=== PATIENT | female | born 1995 | race Caucasian/White ===

== ENCOUNTER 2018-05-07 21:12 | Emergency (ER) | payer OTHER ==
[~2018-05-07] VITALS: Ht 152.4 cm; Wt 77.1 kg
[2018-05-07] MEDS ORDERED: CELEXA10 MG PO (21:23)
[2018-05-07] MEDS ORDERED: VITAMIN D5000 UNIT PO (21:24)
[2018-05-07] MEDS ORDERED: WELLBUTRIN SR150 MG PO (21:24)
[2018-05-07 21:44] LABS: CALCIUM 9.1 mg/dL (8.5-10.1); CREATININE 0.7 mg/dL (0.6-1.3); POTASSIUM 3.7 mmol/L (3.5-5.1)
[2018-05-07 21:46] LABS: ABSOLUTE MONOCYTES 0.5 thou/uL (0.0-1.2); ABSOLUTE NEUTROPHILS 4.7 thou/uL (1.6-8.1); BASOPHILS 0.2 %; EOSINOPHILS 0.5 %; HEMOGLOBIN 11.5 gm/dL (12.0-15.0); LYMPHOCYTES 36.4 %; MCH 31.1 pg (26.0-34.0); MCV 91.4 fL (80.0-100.0); MONOCYTES 6.3 %; MPV 6.7 fl. (7.2-11.1); NUCLEATED RBCS 0 /100WBC; PLATELET COUNT* 282 thou/uL (150-400); POLYS 56.6 %; RBC 3.72 mil/uL (4.20-5.00); RDW-CV 12.5 % (10.5-14.5); WBC 8.3 thou/uL (4.0-11.0)
[2018-05-07 21:48] LABS: ALBUMIN 3.1 g/dL (3.4-5.0); TOTAL BILIRUBIN 0.1 mg/dL (<0.1-1.0); TOTAL PROTEIN 7.1 g/dL (6.4-8.2)
[2018-05-07 22:28] LABS: URINE BILIRUBIN NEGATIVE (Negative); URINE BLOOD NEGATIVE (Negative); URINE CLARITY CLEAR; URINE COLOR YELLOW; URINE GLUCOSE-RANDOM NEGATIVE (Negative); URINE KETONES NEGATIVE (Negative); URINE LEUKOCYTES-REFLEX NEGATIVE (Negative); URINE NITRITE-REFLEX NEGATIVE (Negative); URINE PROTEIN NEGATIVE (Negative); URINE SPECIFIC GRAVITY 1.025 (1.005-1.030); URINE UROBILINOGEN 0.2 E.U./dl (0.2-1.0)
[2018-05-07] MEDS ORDERED: ZOFRAN ODT4 MG DISSOLVE (22:33)
[2018-05-07 23:07] VITALS: BP 119/64
== END 2018-05-07 23:07 | disposition home or self-care (01) ==
LOC: M.ERS 21:12
PROVIDERS: Emergency Medicine Emergency Medical Services
DX: O26.891 Other specified pregnancy related conditions, first trimester (principal); Z3A.12 12 weeks gestation of pregnancy; R11.2 Nausea with vomiting, unspecified

== ENCOUNTER 2019-08-14 08:57 | Emergency (ER) | payer OTHER ==
[~2019-08-14] VITALS: Ht 152.4 cm; Wt 72.6 kg
[~2019-08-14 08:57] MED LIST: CELEXA10 MG PO; VITAMIN D5000 UNIT PO; WELLBUTRIN SR150 MG PO; ZOFRAN ODT4 MG DISSOLVE
[2019-08-14] MEDS ORDERED: ZOLOFT25 MG PO (09:08)
[2019-08-14] MEDS ORDERED: B12INJ IM (09:09)
[2019-08-14 10:22] VITALS: BP 124/79
== END 2019-08-14 10:24 | disposition home or self-care (01) ==
LOC: M.ERS 08:57
DX: R13.10 Dysphagia, unspecified (principal)

== ENCOUNTER 2021-07-03 02:09 | Emergency (ER) | payer OTHER ==
[~2021-07-03] VITALS: Ht 152.4 cm; Wt 68.0 kg
[~2021-07-03 02:09] MED LIST changes: +B12INJ IM; +ZOLOFT25 MG PO
[2021-07-03] MEDS ORDERED: WELLBUTRIN XL300 MG PO (02:17)
[2021-07-03] MEDS ORDERED: BUSPIRONE HCL10 MG PO (02:17)
[2021-07-03] MEDS ORDERED: LATUDA60 MG PO (02:18)
[2021-07-03] MEDS ORDERED: ADDERALL 10 MG10 MG PO (02:19)
[2021-07-03] MEDS ORDERED: LEXAPRO 10 MG T10 M1 PO (02:22)
[2021-07-03 03:03] LABS: URINE BILIRUBIN NEGATIVE (Negative); URINE BLOOD TRACE (Negative); URINE CLARITY CLEAR; URINE COLOR YELLOW; URINE GLUCOSE-RANDOM NEGATIVE (Negative); URINE KETONES NEGATIVE (Negative); URINE LEUKOCYTES-REFLEX TRACE (Negative); URINE NITRITE-REFLEX NEGATIVE (Negative); URINE PROTEIN NEGATIVE (Negative); URINE SPECIFIC GRAVITY >= 1.030 (1.005-1.030); URINE UROBILINOGEN 0.2 E.U./dl (0.2-1.0)
[2021-07-03 03:30] LABS: CASTS None Seen /LPF (None Seen); MUCUS >6 Heavy strn/LPF (None Seen); SQUAMOUS >10 Many /LPF (0-3)
[2021-07-03 03:31] LABS: CRYSTALS None Seen /LPF (None Seen); URINE RBC 3-10 Few /HPF (0-2); URINE WBC-REFLEX 6-15 Few /HPF (0-5)
[2021-07-03] MEDS ORDERED: PHENERGAN 25 MG25 M1 PO (03:48)
[2021-07-03 04:00] VITALS: BP 130/65
== END 2021-07-03 04:00 | disposition home or self-care (01) ==
LOC: M.ERS 02:09
PROVIDERS: Emergency Medicine
DX: G43.909 Migraine, unspecified, not intractable, without status migrainosus (principal); F12.90 Cannabis use, unspecified, uncomplicated; Z79.899 Other long term (current) drug therapy